=== PATIENT | female | born 1995 | race Caucasian/White ===

== ENCOUNTER 2020-05-14 02:45 | Emergency (ER) | payer MEDICAID, OTHER ==
--- NOTE | 2020-05-14 02:46 | NUR ---
PATIENT STATES, "I AM GONNA LEAVE AND I AM NOT GOING TO SIGN ANYTHING." PATIENT LEFT. PATIENT IS AMBULATORY WITH A STEADY GAIT. AAOX4. NO SOB. BREATHING EVENLY AND UNLABORED ON ROOM AIR AT 100%
--- NOTE | 2020-05-14 02:48 | NUR ---
[employer] OFFICERS TALKING TO PT IN THE WAITING ROOM.
[2020-05-14 03:01] VITALS: BP 123/91
== END 2020-05-14 03:32 | disposition left against medical advice (07) ==
LOC: ER 02:47
DX: Z53.21 Procedure and treatment not carried out due to patient leaving prior to being seen by health care provider (principal)